=== PATIENT | female | born 1995 | race Two or more races ===

== ENCOUNTER 2018-08-06 06:10 | Day surgery (SDC) | payer BC ==
[~2018-08-06] VITALS: Ht 157.5 cm; Wt 89.4 kg
[~2018-08-06 06:10] MED LIST: CETI10TA22 PO; MONT10TA9 PO; OMEP40CA5 PO
[2018-08-06 06:49] LABS: U PREG PATIENT NEGATIVE (NEG)
[2018-08-06] MEDS ORDERED: ONDANSETRON PF 4 MG/2 ML VIAL. ONE (06:56)
[2018-08-06] MEDS ORDERED: FAMOTIDINE 20 MG/2 ML VIAL ONE (06:56)
[2018-08-06] MEDS ORDERED: DEXAMETHASONE SOD PHOS 20 MG/5 ML VIAL. ONE (06:56)
[2018-08-06] MEDS ORDERED: LIDOCAINE 2% PF Vial for OR 5 ML VIAL. ONE (06:56)
[2018-08-06] MEDS ORDERED: PROPOFOL 20 ML IV ONE (06:56)
[2018-08-06] MEDS ORDERED: IV RINGERS,LACTATED 1000ML 1,000 ML IV SCH (07:00)
[2018-08-06] MEDS ORDERED: HYDROmorphone 2 MG/ML VIAL IV PRN (07:00)
[2018-08-06] MEDS ORDERED: ROCURONIUM 50 MG/5 ML VIAL. ONE (07:00)
[2018-08-06] MEDS ORDERED: MORPHINE SULFATE 2 MG/ML VIAL. IV PRN (07:00)
[2018-08-06] MEDS ORDERED: ONDANSETRON PF 4 MG/2 ML VIAL. IV PRN (07:00)
[2018-08-06] MEDS ORDERED: LIDOCAINE 1% PF 2 ML VIAL. ID PRN (07:00)
[2018-08-06] MEDS ORDERED: fentaNYL PF VIAL 100 MCG/2 ML VIAL IV PRN ×2 (07:00)
[2018-08-06] MEDS ORDERED: PROCHLORPERAZINE 10 MG/2 ML VIAL. IV PRN (07:00)
[2018-08-06] MEDS ORDERED: MIDAZOLAM HCL/PF 2 MG/2 ML VIAL. ONE (07:00)
[2018-08-06] MEDS ORDERED: fentaNYL PF VIAL 100 MCG/2 ML VIAL ONE ×3 (07:00→09:47)
[2018-08-06] MEDS ORDERED: BUPIVAC MPF-EPI 0.5%-1:200000 30 ML VIAL. ONE (07:13)
[2018-08-06] MEDS ORDERED: IOHEXOL 300 MG/ML 100ML VIAL. ONE (07:14)
[2018-08-06] MEDS ORDERED: SURGICEL HEMOSTAT 4X8 EACH. ONE (07:14)
[2018-08-06] MEDS ORDERED: GLYCOPYRROLATE 1 MG/5 ML VIAL. ONE (07:47)
[2018-08-06] MEDS ORDERED: NEOSTIGMINE METHYLSULFATE 5 MG/5 ML SYRINGE. ONE (07:59)
--- NOTE | 2018-08-06 08:37 | RAD ---
Intraoperative cholangiogram fluoroscopy 08/06/2018 CLINICAL INDICATION: Cholecystectomy. COMPARISON: None. Findings/technique: Total fluoroscopy time 33 seconds. 5 fluoroscopic images were obtained in a radiologist was not present during the procedure. There is opacification of the central intra and extrahepatic biliary ducts without evidence of filling defect to suggest choledocholithiasis or stricture. IMPRESSION: Intraoperative cholangiogram without evidence to suggest choledocholithiasis. Electronically signed by: Kaden Gates MD (08/06/2018 8:34 AM) [id number]
[2018-08-06] MEDS ORDERED: KETOROLAC 30 MG/ML INJ FOR OR. INJ ONE (08:38)
[2018-08-06] MEDS ORDERED: DESFLURANE 31 TO 60 MINUTES IH ONE (08:50)
--- NOTE | 2018-08-06 09:10 | PDOC4 ---
Operative Note Operative Note Operative Note: Preoperative Diagnosis: Symptomatic cholelithiasis Postoperative Diagnosis: Same Procedure: Laparoscopic cholecystectomy with intraoperative cholangiogram Surgeons: Sohan Anesthesia: GenEdward Estimated Blood Loss: 10 mL Specimen: Gallbladder to pathology Drains: None Complications: None Indications: The patient is a 23-year-old female who is been experiencing recurrent upper abdominal pain consistent with biliary colic. Surgical treatment was offered by means of a laparoscopic cholecystectomy. The risks of surgery were discussed which include bleeding, infection, bile duct injury, bile leak, pain, the potential for additional surgeries or procedures. The patient understands and would like to proceed. Description: The patient was taken to the operating room and laid supine on the operating table. General anesthesia was performed. The abdomen was prepped with ChloraPrep and draped in a standard surgical fashion. A small infraumbilical incision was made with a scalpel. The Veress needle was then inserted and a pneumoperitoneum was then created. A 5 mm trocar was then inserted and the laparoscope was introduced. In the upper midabdomen a 5 mm trocar was inserted and in the right upper quadrant two 2.3 mm mini lap graspers were inserted. The gallbladder was retracted cephalad. The patient had a rather prominent fatty infiltration of the liver. The cystic duct was dissected free from surrounding tissues. One clip was placed on the duct near the gallbladder junction. An opening was made in the duct and a cholangiocatheter placed within and secured with a clip. Using contrast dye and fluoroscopy an intraoperative cholangiogram was performed that appeared unremarkable. The clip and catheter were then withdrawn. Three clips were placed on the cystic duct and it was divided. The cystic artery was then identified, dissected free, doubly clipped and divided as well. The gallbladder was then mobilized away from the liver with cautery. The umbilical 5 millimeter trocar was exchanged for an 11 millimeter trocar. The gallbladder was then placed in an endoscopic bag and extracted at the umbilical trocar site. The fascia there was closed with an 0 Vicryl suture. All blood and irrigation fluid was suctioned and hemostasis was good. The remaining ports were removed and the pneumoperitoneum was relieved. The skin incisions were injected with half percent Marcaine with epinephrine, and all were closed using 4-0 Monocryl suture. Steri-Strips and dressings were then applied. The patient tolerated the procedure well and was sent to the recovery room in stable condition. At the end of the case all counts were correct. NATHAN DRAKE MD Aug 06, 2018 09:10
--- NOTE | 2018-08-06 09:13 | DISCH ---
DISCHARGE INSTRUCTIONS Condition on Discharge Condition on Discharge: Stable Activity After Discharge Activity Instructions for Disc: Other, see below (no lifting over 20 lbs X 2 weeks) Driving Instructions after Dis: Other, see below (no driving while taking pain meds) Diet after Discharge Diet after Discharge: Regular Wound Incision Care Wound/Incision Care: Other, see below (may remove bandaids and shower tomorrow) Follow-Up Follow up with: Dr Drake in 2 weeks in office, call for appt [phone] NATHAN DRAKE MD Aug 06, 2018 09:13
[2018-08-06] MEDS ORDERED: oxyCODONE/APAP 5/325 1 TAB TABLET PO ONE (09:15)
[2018-08-06] MEDS ORDERED: ONDA4TAB7 PO (09:28)
[2018-08-06] MEDS ORDERED: OXYC-323 PO (09:28)
[2018-08-06 10:49] VITALS: BP 112/58
--- NOTE | 2018-08-07 18:07 | PATHOLOGY ---
[facility] Accession Number: [id number] . 01 Material submitted: . GALLBLADDER . 01 Clinical history: . Cholelithiasis . 02 Diagnosis: Gallbladder, laparoscopic cholecystectomy: - Cholelithiasis. - Cholesterolosis. - Chronic cholecystitis. . ([facility]; 08/07/18) [facility]/08/07/2018 . 02 Comment: There is no evidence of malignancy. . ([facility]; 08/07/18) . 02 Electronically signed: . Charles Ponce MD, Pathologist NPI- [id number] . 01 Gross description: . The specimen is received in formalin, labeled "Sung, Luz, gallbladder", is an intact, distended gallbladder measurin 8.6 x 2.5 x 2.5 cm with smooth, lu to purple serosa. The lumen is filled with yellow-green viscous bile and two roughly oval irregularly surfaced black-yellow calculi measuring 2.0 x 1.5 x 1.5 cm and 1.5 x 1.5 x 1.3 cm. The mucosa is green and diffusely covered by yellow flecks. The wall measures up to 0.1 cm thick. No discrete masses are identified. [employer] tissue is submitted in A1. ([facility]; 08/06/2018) [facility] . 02 Pathologist provided ICD-10: K80.10, K82.4 . 02 CPT . 578485 Specimen Comment: A courtesy copy of this report has been sent to Specimen Comment: [phone], . Specimen Comment: Report sent to / DR COPPOLA Performed at: [address], [place], [place] [id number] MD Darrell Lamb MD Phone: [phone] Performed at: [address] [id number] MD Charles Ponce MD Phone: [phone]
== END 2018-08-06 10:56 | disposition home or self-care (01) ==
LOC: SURG 06:10
PROVIDERS: ATTEND Surgery
DX: K80.10 Calculus of gallbladder with chronic cholecystitis without obstruction (principal); E66.9 Obesity, unspecified; Z79.899 Other long term (current) drug therapy; Z98.890 Other specified postprocedural states; Z68.36 Body mass index [BMI] 36.0-36.9, adult
CPT/HCPCS: 47563; 74300; 81025; A7015; J0690; J1100; J1885; J2001; J2250; J2405; J2704; J2710; J3010; J3490; J7030; Q9967; 88304